=== PATIENT | male | born 1990 | race Caucasian/White ===

== ENCOUNTER 2018-06-04 14:48 | Inpatient (IN) | payer OTHER, BC ==
[~2018-06-04] VITALS: Ht 180.3 cm; Wt 68.0 kg
[2018-06-04 16:00] VITALS: BP 136/83
--- NOTE | 2018-06-04 16:00 | NUR ---
PRE ASSESSMENT Patient is a 27 year old male who has presented to [facility] today 06/04/18 for a medically supervised withdrawal from ETOH ( Vodka) and Cocaine. He is accompanied by his parents, he is clean, Alert and oriented, steady gait. Abuse History: Vodka 750ml PO daily for last 7 days, last consumed 750ml @ 0400 this AM 06/04/18 Cocaine 1G Inhalation daily for past 7 days, last consume 0400 this AM 06/04/18 He states no medical history and takes no medications nor brought any home meds. 5150 10 years ago for aggressive behavior and alcohol consumption, was in hospital in [place] on 72 hour hold Vital signs : BP 136/83, HR 91. RR 18, O2 SATS 99% Weight 150lbs on standing scale, Height is 5'11" Will continue assessment when patient arrives on floor, room 308 under the care of Dr Rito Jeffrey
[2018-06-04 16:27] LABS: *AMPHETAMINE, URINE NEGATIVE (NEGATIVE); *BARBITURATE, URINE NEGATIVE (NEGATIVE); *CANNABINOID, URINE NEGATIVE (NEGATIVE); *COCCAINE, URINE POSITIVE (NEGATIVE); *OPIATE, URINE NEGATIVE (NEGATIVE); *PHENCYCLIDINE SCREEN,URINE NEGATIVE (NEGATIVE)
[2018-06-04 16:57] LABS: BASOPHILS % (AUTO) 0.5 % (0.0-2.0); EOSINOPHILS # (AUTO) 0.1 K/uL (0.0-0.7); EOSINOPHILS % (AUTO) 1.5 % (0.0-7.0); HEMATOCRIT 49.1 % (36.7-47.1); HEMOGLOBIN 16.8 g/dL (12.5-16.3); LYMPHOCYTES # (AUTO) 1.8 K/uL (20.0-40.0); LYMPHOCYTES % (AUTO) 19.8 % (20.5-51.5); MEAN CORPUSCULAR HEMOGLOBIN 33.2 uug (23.8-33.4); MEAN CORPUSCULAR HGB CONC 34 g/dL (32.5-36.3); MEAN CORPUSCULAR VOLUME 97.1 fL (73.0-96.2); MONOCYTES # (AUTO) 0.6 K/uL (2.0-10.0); MONOCYTES % (AUTO) 6.4 % (0.0-11.0); NEUTROPHILS # (AUTO) 6.6 K/uL (1.8-8.9); NEUTROPHILS % (AUTO) 71.8 % (38.5-71.5); PLATELET COUNT (AUTO) 223 K/uL (152-348); RED BLOOD CELL COUNT(AUTO) 5.06 MIL/uL (4.06-5.63); WHITE BLOOD COUNT (AUTO) 9.1 K/uL (3.6-10.2)
[2018-06-04] MEDS ORDERED: HYDROXYZINE PAMOATE 25 MG CAPSULE PO PRN (17:00)
[2018-06-04] MEDS ORDERED: THIAMINE HCL 200 MG/2 ML VIAL IM ONE (17:00)
[2018-06-04] MEDS ORDERED: DIAZEPAM 10 MG TABLET PO PRN (17:00)
[2018-06-04] MEDS ORDERED: ONDANSETRON 4 MG/2 ML VIAL IM PRN (17:00)
[2018-06-04] MEDS ORDERED: IBUPROFEN 600 MG TABLET PO PRN (17:00)
[2018-06-04] MEDS ORDERED: DIAZEPAM 5 MG TABLET PO PRN (17:00)
[2018-06-04] MEDS ORDERED: LORAZEPAM 2 MG/1 ML VIAL IM PRN (17:00)
[2018-06-04] MEDS ORDERED: diphenhydrAMINE 50 MG CAPSULE PO PRN (17:00)
[2018-06-04] MEDS ORDERED: ONDANSETRON ODT 4 MG TAB.RAPDIS SL PRN (17:00)
[2018-06-04] MEDS ORDERED: MAGNESIUM HYDROXIDE 30 ML LIQUID UDC PO PRN (17:00)
[2018-06-04] MEDS ORDERED: LOPERAMIDE HCL 2 MG CAPSULE PO PRN ×2 (17:00)
[2018-06-04] MEDS ORDERED: MAG HYDROX/AL HYDROX/SIMETH 30 ML LIQUID UDC PO PRN (17:00)
[2018-06-04] MEDS ORDERED: CLONIDINE HCL 0.1 MG TABLET PO PRN (17:00)
[2018-06-04] MEDS: DIAZEPAM 10 MG TABLET PO PRN (17:15)
[2018-06-04 17:25] LABS: BILIRUBIN,TOTAL 0.5 mg/dL (0.2-1.0); CREATININE 1.1 mg/dL (0.6-1.3); MAGNESIUM 1.9 mg/dL (1.8-2.4); POTASSIUM 3.5 mmol/L (3.5-5.1); TOTAL PROTEIN, SERUM 8.4 g/dL (6.4-8.2)
[2018-06-04 17:36] LABS: THYROID STIMULATING HORMONE 0.695 mIU/mL (0.358-3.740)
--- NOTE | 2018-06-04 18:43 | NUR ---
Admission Note Patient is a 27yr old male who was admitted to [facility] 06/04/18 for a medically supervised withdrawal from ETOH ( Vodka) and Cocaine. He arrived on the floor at 1615, skin check done : skin is intact, wt 150lbs and ht is 511. He does not appear intoxicated but displays signs of withdrawal: increased anxiety, bilateral hand tremors, sensitivity to light and thirst. CIWA was 15 on admission. He states no past or present medical history, takes no home medications, medical care is provided through [facility] in [place]. He states he is here for a medically supervised withdrawal due to relapsing 7 days ago after 100 days of sobriety, Abuse History: ETOH- VODKA- 750ml / day for past 7 days , last consume 750ml @ 0400 on 06/04/18 Cocaine 1G daily via Inhalation for the past 7 days last used 1G @ 0400 on 06/04/18 Treatment History: [facility] 02/17/18 for 30 days [facility] 05/2017 for 1 week Action 2014 and 2014 He states he relapsed 1 week ago after 100 days of sobriety and states the reason for his relapse was talking to his ex girlfriend and having feelings of low self worth and low self esteem. He states he wasnt putting the effort into his recovery, he stopped going to AA meetings and because he was not working states he had too much down time and got bored and started using again. He states he started drinking in high school for fun but it soon got into heavy drinking, at age 17 he was aggressive and out of control with his alcohol use and was put on a 5150 in a hospital in [place], [place] and he states from then he has had problems staying sober, but after obtaining 100 days sobriety lately he felt good about himself and this is the first time he has actively sought treatment on his own will ( before his parents forced him). He is motivated to go back to a life of sobriety and knows that if he does not he will continue to have problems with employment, relationships and his family. Vital signs stable, BS present, Lung sounds clear throughout, skin intact, he is full code, regular diet and states no allergies.
--- NOTE | 2018-06-04 18:48 | NUR ---
End Of Shift Patient has settled into the unit, he is lying on bed resting with eyes closed. PRN Valium 10mg PO was given @ 1715 for CIWA 15. Patients withdrawal symptoms present as increased anxiety, bilateral hand tremors, lethargy and thirst. He had a fluid intake of 500ml and 2 Voids. PRN medications are available for S/S of withdrawal. Continue to offer encouragement and support. Endorsed to overnight cashier.
--- NOTE | 2018-06-04 19:30 | NUR ---
Start of shift note Received report from day shift nurse. Patient is a 27 year old male newly admitted for ETOH withdrawal. Patient is on PRN Valium. Patient was given PRN Valium . Last CIWA 15. Patient in the room resting. Patient presents with flat affect, eye avoidant, difficulty concentrating, disheveled and c/o fatigue. Safety measures in place. Call light within reach. Will continue to monitor.
[2018-06-04 20:00] VITALS: BP 119/60
--- NOTE | 2018-06-04 20:00 | NUR ---
CIWA assessment Patient reports anxiety, restlessness, irritability agitation and intermittent respiration. CIWA 7
--- NOTE | 2018-06-04 21:30 | NUR ---
One time Trazadone re-assessment Patient lying in bed with eye closed. Respiration even and unlabored. Will continue to monitor. Addendum: 06/06/18 at 0631 by SHAY ALAMO LVN ERROR: date and time of charting
[2018-06-05] VITALS: BP 104/61
--- NOTE | 2018-06-05 | NUR ---
CIWA deferred Patient lying in bed with eyes closed. Respiration even and unlabored. Will continue to monitor.
[2018-06-05 04:00] VITALS: BP 101/56
--- NOTE | 2018-06-05 04:00 | NUR ---
CIWA deferred Patient lying in bed with eyes closed. Respiration even and unlabored. Will continue to monitor
--- NOTE | 2018-06-05 07:15 | NUR ---
Start of shift note Patient slept 9 hours. Fluid intake 1,300 ml. Voided x 1. No BM. Patient presented with flat affect, eye avoidant, difficulty concentrating, disheveled , fatigue , sweating and somnolent. Patient in the room most of the shift. Patient did not require PRN medication. Encourage fluids. Safety measures in place. Call light within reach. Will continue to monitor. Last CI 7. Addendum: 06/05/18 at 0717 by SHAY ALAMO LVN Error : this charting is end of shift note
--- NOTE | 2018-06-05 07:30 | NUR ---
Start Of Shift Patient is a 27 yr old male who was admitted to [facility] on 06/04/18 for a medically supervised withdrawal from ETOH ( Vodka) and also states he was abusing Cocaine, he has not been placed on any taper yet but has PRN medications available for S/S of withdrawal. No PRN medications were required or requested on PM shift, he slept for 9 hours and last CIWA was 7 @ 2000. Currently he is awake in bed and expresses increased anxiety and restlessness, he declines TB skin test. PRN medications will be offered as needed. Continue to follow MD plan of care and offer support and encouragement as needed.
[2018-06-05 08:01] VITALS: BP 111/59
[2018-06-05] MEDS: THIAMINE HCL 100 MG TABLET PO SCH (08:14)
[2018-06-05] MEDS: MULTIVITAMINS,THERAPEUTIC TABLET PO SCH (08:14)
[2018-06-05] MEDS: FOLIC ACID 1 MG TABLET PO SCH (08:14)
[2018-06-05] MEDS: DIAZEPAM 10 MG TABLET PO PRN (08:14)
--- NOTE | 2018-06-05 08:15 | NUR ---
PRN Valium/ CIWA 12 Valium 10mg PO given for CIWA 12 per protocol for S/S of withdrawal Patient presents with increased anxiety, restlessness, fatigue and irritability.
[2018-06-05] MEDS ORDERED: TUBERCULIN,PURIF.PROT.DERIV. 5 TU/0.1 ML TEST ID ONE (09:00)
--- NOTE | 2018-06-05 09:15 | NUR ---
PRN Reassess Patient states Valium 10mg PO was effective in decreasing his anxiety, will continue to monitor
[2018-06-05 12:00] VITALS: BP 134/71
--- NOTE | 2018-06-05 12:07 | NUR ---
CIWA 11 Patient presents with increased anxiety, restlessness, fatigue and irritability.
[2018-06-05] MEDS ORDERED: 3 DAY TAPER OF VALIUM-SERENITY PROTOCOL PO PRN (13:30)
--- NOTE | 2018-06-05 13:48 | NUR ---
PRN Vistaril 50mg PO given for reports of increased anxiety, will reassess
--- NOTE | 2018-06-05 14:47 | NUR ---
PRN Reassess Patient states Vistaril 50mg PO was effective in decreasing anxiety
[2018-06-05 16:00] VITALS: BP 122/62
--- NOTE | 2018-06-05 16:00 | NUR ---
CIWA 12 Patient presents with increased anxiety, restlessness, fatigue and irritability
[2018-06-05] MEDS: DIAZEPAM 5 MG TABLET PO SCH ×2 (16:17→20:23)
--- NOTE | 2018-06-05 18:54 | NUR ---
End Of Shift Patient is a 27 yr old male who was admitted to [facility] on 06/04/18 for a medically supervised withdrawal from ETOH ( Vodka) and also states he was abusing Cocaine. He has been placed on a 3 day Valium taper and today is day 1. PRN medications given on this shift : Valium 10mg PO and Vistaril 50mg PO for anxiety. His withdrawal symptoms today have presented as increased anxiety, irritability, lethargy, diaphoresis, he has been isolative to his room a lot of the day. He had a fluid intake of 2551ml, 2 Voids and 0 BM, his last CIWA was 12 @ 1600. Continue to follow MD plan of care and offer support and encouragement. Endorsed to material handler 2nd shift.
--- NOTE | 2018-06-05 19:30 | NUR ---
Start of shift note Received report from day shift nurse. Patient is a 24 year old male admitted for ETOH withdrawal. Patient started on 3 day Valium taper today. Patient was given PRN Valium and Vistaril. Last CIWA 12. Patient alert and oriented x 4. Patient presents with flat affect, unshaven and disheveled. Room is dirty and odorous. Safety measures in place. Call light within reach. Will continue to monitor.
[2018-06-05 20:00] VITALS: BP 124/74
--- NOTE | 2018-06-05 20:00 | NUR ---
CIWA assessment Patient reports anxiety, restlessness, intermittent sweating, chills, sensitive to light and sounds. Tremors felt but not observed. CIWA 11.
--- NOTE | 2018-06-05 20:23 | NUR ---
One time Trazadone administration Patient c/o difficulty falling asleep. Will monitor for effectiveness
[2018-06-05] MEDS ORDERED: TRAZODONE 50 MG TABLET PO ONE (21:00)
--- NOTE | 2018-06-05 21:30 | NUR ---
One time Trazadone re-assessment Patient lying in bed with eye closed. Respiration even and unlabored. Will continue to monitor.
[2018-06-06] VITALS: BP 108/68
--- NOTE | 2018-06-06 | NUR ---
FOREST assessment Patient lying in bed with eyes closed. Respiration even and unlabored. Will continue to monitor. Addendum: 06/06/18 at 0402 by SHAY ALAMO LVN Error: FOREST [place]
[2018-06-06 04:00] VITALS: BP 114/73
--- NOTE | 2018-06-06 04:00 | NUR ---
CIWA deferred Patient lying in bed with eyes closed. Respiration even and unlabored. Will continue to monitor
--- NOTE | 2018-06-06 07:16 | NUR ---
End of shift note Patient isolative and withdrawn. Scheduled taper given as ordered, tolerated well. Patient alert and oriented x 4. Patient presented with flat affect, unshaven, disheveled, anxiety, restlessness, difficulty sleeping, sensitive to light and sound. Patient was given one time trazadone, effective. Safety measures in place. Call light within reach. Will continue to monitor. Patient slept 11 hours. Fluid intake 355 ml. Voided x 1. No BM .
--- NOTE | 2018-06-06 07:30 | NUR ---
Start of Shift Lead Caster received report on 27 year old male admitted to [facility] on 06/04/18 for medical management of ETOH withdrawals. Pt endorses NKA, full code and regular diet. Denies PMH or PPH. Pt currently on 3 day Valium with last CIWA 11, per NOC report. No PRN medications administered on NOC, per report. Pt was administered OT order of Trazodone(insomnia), per report. Lead Caster encounter pt in room resting with eyes closed. Even and unlabored respirations noted. Bed in locked position with wheels locked and side rails x2. Will continue to monitor, support and encourage according to plan of care.
--- NOTE | 2018-06-06 08:00 | NUR ---
CIWA 12 Pt is diaphoretic, tremulous, anxious and restless. Pt complains of nausea and chills. Will continue to monitor, support and encourage according to plan of care.
[2018-06-06 08:39] LABS: BASOPHILS % (AUTO) 0.5 % (0.0-2.0); EOSINOPHILS # (AUTO) 0.2 K/uL (0.0-0.7); EOSINOPHILS % (AUTO) 3.1 % (0.0-7.0); HEMATOCRIT 44.3 % (36.7-47.1); HEMOGLOBIN 14.9 g/dL (12.5-16.3); LYMPHOCYTES # (AUTO) 2.6 K/uL (20.0-40.0); LYMPHOCYTES % (AUTO) 38.6 % (20.5-51.5); MEAN CORPUSCULAR HEMOGLOBIN 32.8 uug (23.8-33.4); MEAN CORPUSCULAR HGB CONC 34 g/dL (32.5-36.3); MEAN CORPUSCULAR VOLUME 97.2 fL (73.0-96.2); MONOCYTES # (AUTO) 0.7 K/uL (2.0-10.0); MONOCYTES % (AUTO) 9.8 % (0.0-11.0); NEUTROPHILS # (AUTO) 3.2 K/uL (1.8-8.9); PLATELET COUNT (AUTO) 163 K/uL (152-348); RED BLOOD CELL COUNT(AUTO) 4.55 MIL/uL (4.06-5.63); WHITE BLOOD COUNT (AUTO) 6.7 K/uL (3.6-10.2)
[2018-06-06] MEDS: FOLIC ACID 1 MG TABLET PO SCH (09:25)
[2018-06-06] MEDS: DIAZEPAM 5 MG TABLET PO SCH ×2 (09:25→20:41)
[2018-06-06] MEDS: THIAMINE HCL 100 MG TABLET PO SCH (09:25)
[2018-06-06] MEDS: MULTIVITAMINS,THERAPEUTIC TABLET PO SCH (09:25)
[2018-06-06 09:33] VITALS: BP 101/42
[2018-06-06 10:08] LABS: HEPATITIS B SURFACE AG Negative (Negative)
[2018-06-06 12:14] VITALS: BP 112/51
--- NOTE | 2018-06-06 12:15 | NUR ---
CIWA 10 Pt is anxious, restless, diaphoretic and tremulous, pt with complaints of chills and nausea. Will continue to monitor, support and encourage according to plan of care.
[2018-06-06 16:30] VITALS: BP 126/72
--- NOTE | 2018-06-06 16:30 | NUR ---
CIWA 8 Pt with moist skin, tremors, anxiety, restlessness and nausea. Will continue to monitor, support and encourage according to plan of care.
--- NOTE | 2018-06-06 18:47 | NUR ---
End of Shift Security Monitor provided report on 27 year old male admitted to [facility] on 05/04/18 for medical management of ETOH withdrawals. Pt endorses NKA, full code and regular diet. Denies PMH or PPH. Pt currently on 3 day Valium with last CIWA 8, recorded at 1630. No PRN medications administered on this shift. Pt is A/O x4 and able to make needs known. Pt with a linear thought process and clear speech pattern. Pt with a flat affect and depressed mood. Pt is isolative and withdrawn to self and room. Pt is anxious, restless, tremulous and has moist skin. Bed in locked position with wheels locked and side rails x2.
--- NOTE | 2018-06-06 19:30 | NUR ---
Start of Shift Patient Received. Per endorsement, patient continues on a 3 day Valium taper. Patient has been noted to be isolative to room. No PRN medications Administered. Last noted CIWA 8. Upon rounds patient is noted in bed, awake, alert and verbally responsive. Patient is noted to easily engage in conversation but is noted to be restless and fidgety. He reports intermittent sweats and chills. He is also able to report that the taper medication has been effective in minimizing signs and symptoms of withdrawal. All needs attended to promptly. Will continue plan of care as ordered.
--- NOTE | 2018-06-06 20:30 | NUR ---
CIWA Assessment Patient is noted with increased anxiety, agitation, restlessness, intermittent sweats, tremulous to touch, and light sensitivity. CIWA noted to be 12. Medications administered as per order.
[2018-06-06 20:39] VITALS: BP 109/68
--- NOTE | 2018-06-07 00:48 | NUR ---
Vitals and CIWA Patient is noted in bed with eyes closed. Breathing even and non labored. Patient refused vitals. CIWA not able to be completed as per order. Will continue to monitor.
--- NOTE | 2018-06-07 04:20 | NUR ---
CIWA and VITALS Patient is noted in bed with eyes closed. Breathing even and non labored. patient refused vitals. CIWA not able to be completed as per order. All needs attended to promptly. Will continue to monitor.
--- NOTE | 2018-06-07 07:21 | NUR ---
End of Shift Patient is noted in bed with eyes closed. Breathing even and non labored. Patient continues on a 3 day Valium taper. Patient continues to be isolative to room prior to bed time. No PRN medications Administered. Last noted CIWA 12. Patient was noted with increased anxiety, restlessness, increased chills and sweats. Patient noted to sleep a total of 8 hours. All needs attended to promptly. Will endorse to continue plan of care as ordered.
--- NOTE | 2018-06-07 07:45 | NUR ---
START OF SHIFT Endorse rcvd from ongoing nurse, client is in room, he is a/o x 4, he presents with anxious mood, flat affect, fine tremors, and clammy skin. Client reports feeling anxious, irritable, chills/colds, and fatigue. Client said, "At least now, my appetite is better." Encourage client to attend group therapy to learn skills to maintain sober. Last CIWA 12 @ 1999. Client is on last of 3 day Valium taper. Client slept 8 hrs. Side rails x 2 up/padded. Seizure precautions. Call light within reach. Will continue to monitor.
[2018-06-07 08:09] VITALS: BP 120/69
[2018-06-07] MEDS: THIAMINE HCL 100 MG TABLET PO SCH (08:11)
[2018-06-07] MEDS: FOLIC ACID 1 MG TABLET PO SCH (08:11)
[2018-06-07] MEDS: MULTIVITAMINS,THERAPEUTIC TABLET PO SCH (08:11)
--- NOTE | 2018-06-07 08:11 | NUR ---
[facility] 11 Client is in room. he is a/o x 4, he presents with anxious mood, flat affect, fine tremors, clammy skin, avoidant gaze, and difficulty concentrating. Client reports cold/ chills, feverish at times, tremors, sweats and anxiety. Schedule Valium 5mg PO administered. Call light within reach.
[2018-06-07] MEDS ORDERED: DIAZEPAM 5 MG TABLET PO SCH (09:00)
--- NOTE | 2018-06-07 09:28 | NUR ---
Therapist prompted client to attend all group therapy sessions.
[2018-06-07 12:00] VITALS: BP 110/58
--- NOTE | 2018-06-07 12:15 | NUR ---
CIWA 9 Client is in room, sitting at edge of the bed, he presents with anxious mood, agitation, flat affect, tremors felt, clammy skin, and difficulty concentrating. Encourage client to increase PO fluid intake as tolerated to facilitate detox. Non-pharmacologic measures rendered. Will continue to monitor. Call light within reach.
--- NOTE | 2018-06-07 16:22 | NUR ---
CIWA 7 Client reports anhedonia, anxiety, agitation, chills/colds, and fatigue. Non-pharmacological measures rendered. Call light within reach.
[2018-06-07 16:55] VITALS: BP 118/60
--- NOTE | 2018-06-07 19:00 | NUR ---
END OF SHIFT Endorse client to incoming nurse, client is in room, a/o x 4, client continues to present with anxiety, agitation, tremors felt, clammy skin, and fatigue. Last CIWA 7 @ 1600. Client completed 3 day Valium taper. He is schedule for discharge tomorrow am. Client required encouragement to attend group therapy. Consumes 75% of meals. Adequate PO fluid intake 1946mL, void x 3, stool x 1. Side rails x 2 up/padded. Seizure precautions. Call light within reach.
--- NOTE | 2018-06-07 19:30 | NUR ---
START OF SHIFT Received patient awake, alert, and oriented x4 lying in bed with bed in a low locked position and bilateral side rails up. Per endorsement, patient is a 27 year old male admitted for medically supervised detox from ETOH (Vodka) and cocaine. Patient admitted with no past medical history, has finished his 3 day valium taper today 06/07/2018, and has a history of being to 4 different treatments for detox/rehab. Patient is to be discharged to go home tomorrow. Last CIWA score of 7 at 1600. Upon assessment, patient had a pleasant affect, was talkative, and had no complaints of pain or distress. Will continue to monitor.
--- NOTE | 2018-06-07 20:00 | NUR ---
CIWA Assessment Patient is noted with increased anxiety, agiation, restlessness, intermittent sweets, and tremulous to touch. Patient denies need for medication at the moment. all needs attended to promptly. Will continue to monitor.
[2018-06-07 20:12] VITALS: BP 120/78
--- NOTE | 2018-06-08 00:49 | NUR ---
CIWA and Vitals Patient is noted in bed with eyes closed. Breathing even and non labored. Patient refused vitals. No restlessness or facial grimacing noted. Will continue to monitor.
--- NOTE | 2018-06-08 04:00 | NUR ---
CIWA=11 Patient reported increased nausea, anxiety, chills, and general malaise stating I can feel my withdrawal symptoms kicking in. CIWA score is 10. PRN Hua ODT given for nausea. Will continue to monitor. Addendum: 06/08/18 at 0707 by BEN VALERO RN Entered in error - wrong patient.
--- NOTE | 2018-06-08 04:00 | NUR ---
VITALS AND CIWA DEFERRED Patient noted lying in bed with HOB and side rails up. Bed is in a locked position. Eyes were noted closed and respirations even and unlabored. Vital signs refused and CIWA assessment deferred. Will continue to monitor.
--- NOTE | 2018-06-08 07:06 | NUR ---
END OF SHIFT Patient is a 27 year old male admitted for medically supervised detox from ETOH (Vodka) and cocaine. Patient continues to show signs of anxiety, chills, malaise, and restlessness during beginning of shift. Last CIWA score was 7 taken at 1999. Patient slept for about 9 hours during shift. Patient is set for discharge this morning 06/08/18 to home. Patient is able to verbalize possible effective coping skills for maintaining sober lifestyle. Endorsed to oncoming AM nurse.
--- NOTE | 2018-06-08 07:20 | NUR ---
Start Of Shift Patient is a 27 yr old male who was admitted to [facility] on 06/04/18 for a medically supervised withdrawal from ETOH ( Vodka) and also states he was abusing Cocaine, he has completed a 3 day Valium taper and will be discharged to home this AM.. No PRN medications were required or requested on PM shift, he slept for 9 hours and last CIWA was 7 @ 2000. Currently he is awake in bed and expresses increased anxiety and restlessness. Continue to follow MD plan of care for DC and offer support and encouragement as needed.
[2018-06-08 08:00] VITALS: BP 94/49
--- NOTE | 2018-06-08 08:00 | NUR ---
CIWA 9 Patient presents with increased anxiety due to being discharged today he states, he is restless and antsy No PRN medications requested or required
[2018-06-08] MEDS: THIAMINE HCL 100 MG TABLET PO SCH (08:56)
[2018-06-08] MEDS: MULTIVITAMINS,THERAPEUTIC TABLET PO SCH (08:56)
[2018-06-08] MEDS: FOLIC ACID 1 MG TABLET PO SCH (08:56)
--- NOTE | 2018-06-08 09:40 | NUR ---
Discharge Note Patient has signed and dated all DC paperwork, VS stable, patient states no SI/HI, Patient discharged to lobby where he will be picked up by personal transportation.
== END 2018-06-08 09:40 | disposition other institution (70) | DRG 895 ==
LOC: SRC 15:32
PROVIDERS: ADMIT Family Medicine Addiction Medicine; ATTEND Family Medicine Addiction Medicine
PROC: HZ2ZZZZ Detoxification Services for Substance Abuse Treatment (ICD-10-PCS; principal; 2018-06-04)
PROC: HZ41ZZZ Group Counseling for Substance Abuse Treatment, Behavioral (ICD-10-PCS; 2018-06-05)
PROC: HZ31ZZZ Individual Counseling for Substance Abuse Treatment, Behavioral (ICD-10-PCS; 2018-06-07)
DX: F10.230 Alcohol dependence with withdrawal, uncomplicated (principal); F14.229 Cocaine dependence with intoxication, unspecified; F33.9 Major depressive disorder, recurrent, unspecified; Y90.1 Blood alcohol level of 20-39 mg/100 ml; F41.1 Generalized anxiety disorder; F17.210 Nicotine dependence, cigarettes, uncomplicated
CPT/HCPCS: 36415; 70030-TC; 80307; 80353; 83690; 83735; 84443; 85025; 86592; 86705; 86803; 87340; 87806; A4663; G0480